=== PATIENT | female | born 1965 | race Caucasian/White ===

== ENCOUNTER 2017-03-15 13:43 | Emergency (ER) | payer SELFPAY ==
[~2017-03-15] VITALS: Ht 149.9 cm; Wt 59.0 kg
[~2017-03-15 13:43] MED LIST: DIPH25TA82 PO; ESCI20TA2 PO; ZLP5T PO
[2017-03-15] MEDS ORDERED: ZOLP10TA5 (14:06)
[2017-03-15] MEDS ORDERED: CITA40TA11 (14:06)
[2017-03-15 14:55] LABS: BILIRUBIN,URINE NEGATIVE (NEGATIVE); CLARITY,URINE CLEAR; COLOR,URINE YELLOW; GLUCOSE, URINE (UA) NEGATIVE (NEGATIVE); KETONES,URINE NEGATIVE (NEGATIVE); LEUKOCYTE ESTERASE ,URINE NEGATIVE (NEGATIVE); NITRITE,URINE NEGATIVE (NEGATIVE); PH,URINE 5 (5-9); PROTEIN,URINE NEGATIVE (NEGATIVE); UROBILINOGEN,URINE NORMAL (NORMAL)
--- NOTE | 2017-03-15 14:59 | ED GI ---
General Chief Complaint: Abdominal/GI Problems Stated Complaint: CONSTIPATED,BLEEDING RECTAL Nursing Triage Note: ARRIVED VIA AMB TO ROOM 10. STATES SHE STARTED HAVING CONSTIPATION ON SUNDAY. TOOK SENNA. STATES SHE HAD A BM ON SUNDAY THEN HAD DIARRHEA ON SUNDAY AND HAS NOT GONE SINCE. PT STATES SHE IS HAVING SOME RECTAL BLEEDING. PT STATES SHE AND HAD ANAL SEX ON SUN WHICH IS SOMETHING THEY DO NOT DO AND IS WORRIED THIS SOMEHOW CAUSED THE PROBLMES. Sepsis Screen: No Definite Risk Source of Information: Patient Exam Limitations: No Limitations History of Present Illness Date Seen by Provider: Mar 15, 2017 Time Seen by Provider: 14:00 Initial Comments This 51-year-old woman presents to the emergency room with primary complaint of rectal bleeding. She had a small amount of blood on the toilet paper today. She believes the blood is coming from the anal area. She reports having constipation last week. This started on the and . She took Senokot S on the and then began having bowel movements by . She has soft stools the next day. She additionally has eaten prunes and drank apple juice to help with constipation. She has had some associated back pain which was rather intense last night. She is additionally concerned because she had anal intercourse with her on the but denied having any bleeding or pain at that time. Her last menstrual period was 2 years ago. Allergies and Home Medications Allergies Uncoded Allergies: ENVIRONMENTAL (Allergy, Mild, 05/28/13) Home Medications Citalopram Hydrobromide 40 Mg Tablet, (Reported) Hydrocortisone/Pramoxine 10 Gm Foam, 1 APPLIC RC BID PRN for PAIN-MILD TO MODERATE, #1 Prescribed by: ROLDAN SILVA on 03/15/17 1548 Zolpidem Tartrate 5 Mg Tab, 5 MG PO HS, (Reported) Zolpidem Tartrate 10 Mg Tablet, (Reported) Review of Systems Constitutional: no symptoms reported EENTM: No Symptoms Reported Respiratory: No Symptoms Reported Cardiovascular: No Symptoms Reported Gastrointestinal: See HPI Genitourinary: No Symptoms Reported Musculoskeletal: no symptoms reported Skin: no symptoms reported Psychiatric/Neurological: No Symptoms Reported Endocrine: No Symptoms Reported Hematologic/Lymphatic: No Symptoms Reported Past Jzykpqt-Uamxra-Plvteb Hx Patient Social History Recent Foreign Travel: No Contact w/Someone Who Travel: No Recent Infectious Disease Expo: No Immunizations Up To Date Date of Influenza Vaccine: Feb 19, 2013 Surgeries History of Surgeries: Yes Surgeries: Section (3) Respiratory History of Respiratory Disorde: No Cardiovascular History of Cardiac Disorders: Yes Cardiac Disorders: High Cholesterol Neurological History of Neurological Disord: No 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 Genitourinary History of Genitourinary Disor: No Gastrointestinal History of Gastrointestinal Di: No Musculoskeletal History of Musculoskeletal Dis: No Endocrine History of Endocrine Disorders: No HEENT History of HEENT Disorders: No Cancer History of Cancer: No Psychosocial History of Psychiatric Problem: No Integumentary History of Skin or Integumenta: No Physical Exam Vital Signs VS - Last 72 Hours, by Label 03/15/17 13:58 Temp 98.0 Pulse 115 Resp 18 B/P (MAP) 168/108 (128) Pulse Ox 96 Capillary Refill : Less Than 3 Seconds General Appearance: WD/WN, no apparent distress HEENT: PERRL/EOMI, normal ENT inspection, pharynx normal Neck: normal inspection Respiratory: lungs clear, normal breath sounds, no respiratory distress, no accessory muscle use Cardiovascular: regular rate, rhythm, no edema, no murmur Gastrointestinal: normal bowel sounds, non tender, soft Genital/Rectal: other (there is a small uncomplicated anal fissure just exterior to the anterior portion of the anal verge. There is no active bleeding and no inflammation. Digital rectal exam revealed no blood, masses, or unusual pain.) Extremities: normal inspection, no pedal edema Neurologic/Psychiatric: gas combustion engineer II-XII nml as tested, no motor/sensory deficits, alert, normal mood/affect, oriented x 3 Skin: normal color, warm/dry Progress/Results/Core Measures Results/Orders Lab Results Laboratory Tests Test 03/15/17 14:08 Range/Units Urine Color YELLOW Urine Clarity CLEAR Urine pH 5 5-9 Urine Specific Severance 1.025 H 1.016-1.022 Urine Protein NEGATIVE NEGATIVE Urine Glucose (UA) NEGATIVE NEGATIVE Urine Ketones NEGATIVE NEGATIVE Urine Nitrite NEGATIVE NEGATIVE Urine Bilirubin NEGATIVE NEGATIVE Urine Urobilinogen NORMAL NORMAL MG/DL Urine Leukocyte Esterase NEGATIVE NEGATIVE Urine RBC (Auto) NEGATIVE NEGATIVE Urine RBC NONE /HPF Urine WBC NONE /HPF Urine Squamous Epithelial Cells 5-10 /HPF Urine Crystals NONE /LPF Urine Bacteria NEGATIVE /HPF Urine Casts NONE /LPF Urine Mucus NEGATIVE /LPF Urine Culture Indicated NO My Orders Orders - BRUEGGEMANN,ROLDAN T MD Ua Culture If Indicated (03/15/17 14:32) Abdomen/Kub 1view (03/15/17 14:32) Vital Signs/I&O Vital Sign - Last 12Hours 03/15/17 13:58 Temp 98.0 Pulse 115 Resp 18 B/P (MAP) 168/108 (128) Pulse Ox 96 Blood Pressure Mean: 128 Diagnostic Imaging Diagonstic Imaging: Xray Plain Films/CT/US/NM/MRI: abdomen, pelvis Comments KUB viewed by me and report reviewed. See report below: NAME: AYAD [facility]DRAN [facility] REC#: [id number] PT STATUS: REG ER : 1965 PHYSICIAN: ROLDAN APODACA MD ADMIT DATE: 03/15/17/ER Draft Date of Exam:03/15/17 ABDOMEN/KUB 1VIEW INDICATION: Constipation. Abdominal pain. COMPARISON: None. FINDINGS: Single supine radiographic view of the abdomen was obtained and demonstrates nondistended loops of small bowel. There is no large collection of free peritoneal air. Moderate air and stool are seen scattered throughout the colon. Well corticated extraosseous rounded calcifications are seen projecting over the pelvis, bilaterally. No unexpected radiopaque foreign bodies are identified. Bony structures show no gross acute abnormalities. IMPRESSION: 1. Nonobstructed small bowel gas pattern. 2. Moderate colonic air and stool. Please correlate for constipation. 3. Probable pelvic phleboliths, although distal ureteral calculi cannot be entirely excluded. Dictated on workstation # [id number] Dict: 03/15/17 1532 Trans: 03/15/17 1534 [facility] [id number] Interpreted by: HÉCTOR FREY MD Departure Impression Impression: Primary Impression: Anal fissure Additional Impression: Constipation Qualified Codes: K59.00 - Constipation, unspecified Disposition: 01 HOME, SELF-CARE Condition: Stable Departure-Patient Inst. Decision time for Depature: 15:45 Referrals: TEJAL EDWARDS DO (PCP) Primary Care Physician JAMES SANTO (Family) Primary Care Physician Patient Instructions: Anal Fissure, Constipation, Adult (DC) Add. Discharge Instructions: Drink plenty of clear liquids and eat a diet high in fiber including plenty of fruits, vegetables, whole grains, etc. Avoid excessive meats, cheeses, processed foods, and fast foods. You may use MiraLAX (polyethylene glycol) once or twice daily for treatment of constipation. Fill the measuring cap o the appropriate line and mix with 8-12 ounces of water or juice. You may take Tylenol (acetaminophen) and/or ibuprofen for your back pain. Minimize irritation and trauma to the anal area to allow the fissure (crack) to heal. If you develop pain or irritation with that, you may fill the proctoscopy foam as prescribed. Return to care if his symptoms are worsening or you're not improving as anticipated. All discharge instructions reviewed with patient and/or family. Voiced understanding. Scripts Tramadol HCl (Ultram) 50 Mg Tablet 50 MG PO QID, #8 TAB Prov: ROLDAN APODACA MD 03/15/17 Hydrocortisone/Pramoxine (Proctofoam-Hc 1%-1% Foam) 10 Gm Foam 1 APPLIC RC BID Y for PAIN-MILD TO MODERATE, #1 GM Prov: ROLDAN APODACA MD 03/15/17 ROLDAN APODACA MD Mar 15, 2017 14:59
[2017-03-15 15:02] LABS: BACTERIA,URINE NEGATIVE /HPF
--- NOTE | 2017-03-15 15:34 | Diagnostic Imaging Report ---
INDICATION: Constipation. Abdominal pain. COMPARISON: None. FINDINGS: Single supine radiographic view of the abdomen was obtained and demonstrates nondistended loops of small bowel. There is no large collection of free peritoneal air. Moderate air and stool are seen scattered throughout the colon. Well corticated extraosseous rounded calcifications are seen projecting over the pelvis, bilaterally. No unexpected radiopaque foreign bodies are identified. Bony structures show no gross acute abnormalities. IMPRESSION: 1. Nonobstructed small bowel gas pattern. 2. Moderate colonic air and stool. Please correlate for constipation. 3. Probable pelvic phleboliths, although distal ureteral calculi cannot be entirely excluded. Dictated by: Dictated on workstation # [id number]
[2017-03-15] MEDS ORDERED: HCPR10FM RC (15:48)
[2017-03-15] MEDS ORDERED: TRAM-42 PO (16:04)
[2017-03-15 16:09] VITALS: BP 151/81
--- OUTSIDE RECORDS SUMMARY | 2017-03-18 06:00 | XMS REPORT ---
Author Author JAMES SANTO Organization [employer] Address Unknown Phone Unavailable Care Team Providers Care Dry Wall Sprayer Name Role Phone JAMES SANTO CP Unavailable Allergies No Known Allergies Problems Problem Type Condition Code Onset Dates Condition Status Problem Routine adult health maintenance V70.0 Active Problem Allergic rhinitis 477.9 Active Problem Insomnia, unspecified G47.00 Active Problem Unspecified hypertrophic and atrophic condition of skin 701.9 Active Assessment Insomnia, unspecified G47.00 Active Problem Insomnia 780.52 Active Problem Anxiety 300.00 Active Medications Medication Code System Code Instructions Start Date End Date Status Dosage Ambien [facility] [id number] 10 MG Orally Once a day. Appt required prior to next refill Dec 03, 2014 1 tablet at bedtime as needed Results No Known Results Summary Purpose [employer]ClinicalWorks Submission
--- OUTSIDE RECORDS SUMMARY | 2017-03-18 06:00 | XMS REPORT ---
Author Author WEI RIOS [facility] e[employer] Address Unknown Phone Unavailable Care Team Providers Care Sandwich Hand Name Role Phone WEI RIOS CP Unavailable Allergies No Known Allergies Problems [...] Instructions Start Date End Date Status [facility]os[facility] [address]-78 10 MG Orally Once a day Dec 07, 2014 1 tablet at bedtime as needed Results No Known Results Summary Purpose [employer]ClinicalWorks Submission
--- OUTSIDE RECORDS SUMMARY | 2017-03-18 06:00 | XMS REPORT ---
Author Author WEI RIOS [facility] [employer] Address Unknown Phone Unavailable Care Team Providers Care Podopediatrician Name Role Phone WEI RIOS CP Unavailable Allergies No Known Allergies Problems Problem Type Condition Code Onset Dates Condition Status Problem Insomnia, unspecified G47.00 Active Problem Routine adult health maintenance V70.0 Active Problem Anxiety F41.9 Active Problem Anxiety 300.00 Active Problem Unspecified hypertrophic and atrophic condition of skin 701.9 Active Problem Allergic rhinitis 477.9 Active Problem Insomnia 780.52 Active Medications No Known Medications Results No Known Results Summary Purpose [employer]ClinicalWorks Submission
--- OUTSIDE RECORDS SUMMARY | 2017-03-18 06:00 | XMS REPORT ---
Author Author WEI RIOS [facility] e[employer] Address Unknown Phone Unavailable Care Team Providers Care Field Administrator Name Role Phone WEI RIOS CP Unavailable Allergies No Known Allergies Problems Problem Type Condition ICD-9 Code Onset Dates Condition Status Problem Allergic rhinitis 477.9 Active Problem Insomnia 780.52 Active Problem Routine adult health maintenance V70.0 Active Problem Anxiety 300.00 Active Problem Unspecified hypertrophic and atrophic condition of skin 701.9 Active Medications No Known Medications Results No Known Results Summary Purpose [employer]ClinicalWorks Submission
--- OUTSIDE RECORDS SUMMARY | 2017-03-18 06:00 | XMS REPORT ---
Author Author WEI RIOS [facility] eClinicalWorks Address Unknown Phone Unavailable Care Team Providers Care Wet Machine Cutter Name Role Phone WEI RIOS CP Unavailable Allergies, Adverse Reactions, Alerts Substance Reaction Event Type Pravastatin Sodium Vomitting Drug Allergy Problems Problem Type Condition ICD-9 Code Onset Dates Condition Status Problem Allergic rhinitis 477.9 Active Problem Insomnia 780.52 Active Problem Routine adult health maintenance V70.0 Active Problem Anxiety 300.00 Active Problem Unspecified hypertrophic and atrophic condition of skin 701.9 Active Medications Medication Code System Code Instructions Start Date End Date Status Dosage Red Yeast [facility] 2001 [id number] 600 MG Orally not defined Results No Known Results Summary Purpose eClinicalWorks Submission
--- OUTSIDE RECORDS SUMMARY | 2017-03-18 06:00 | XMS REPORT | Continuity of Care Document ---
Author Author [facility] Address Unknown Phone Unavailable Allergies Active Description Code Type Severity Reaction Onset Reported/Identified Relationship to Patient Clinical Status Yes ENVIRONMENTAL ENVIRONMENTAL Mild N/A 05/28/2013 Medications There is no data. Problems Date Dx Coded Attending Type Code Diagnosis Diagnosed By 05/28/2013 ROLDAN APODACA MD Ot 465.9 ACUTE URI NOS 05/28/2013 ROLDAN APODACA MD Ot 786.2 COUGH 05/05/2014 KRIS DOAN APRN 701.9 UNSPECIFIED HYPERTROPHIC AND ATROPHIC CONDITIONS OF SKIN 05/14/2015 ISAAK JOLLY APRN Ot Z12.31 05/26/2015 ISAAK JOLLY APRN Ot Z12.31 03/15/2017 ISAAK JOLLY APRN Ot Z12.31 ENCNTR SCREEN MAMMOGRAM FOR MALIGNANT NE Procedures There is no data. Results Test Result Range Complete urinalysis with reflex to culture - 03/15/17 14:08 Urine color determination YELLOW NRG Urine clarity determination CLEAR NRG Urine pH measurement by test strip 5 5-9 Specific gravity of urine by test strip 1.025 1.016- 1.022 Urine protein assay by test strip, semi-quantitative NEGATIVE NEGATIVE Urine glucose detection by automated test strip NEGATIVE NEGATIVE Erythrocytes detection in urine sediment by light microscopy NEGATIVE NEGATIVE Urine ketones detection by automated test strip NEGATIVE NEGATIVE Urine nitrite detection by test strip NEGATIVE NEGATIVE Urine total bilirubin detection by test strip NEGATIVE NEGATIVE Urine urobilinogen measurement by automated test strip (mass/volume) NORMAL NORMAL Urine leukocyte esterase detection by dipstick NEGATIVE NEGATIVE Automated urine sediment erythrocyte count by microscopy (number/high power field) NONE NRG Automated urine sediment leukocyte count by microscopy (number/high power field ) NONE NRG Bacteria detection in urine sediment by light microscopy NEGATIVE NRG Squamous epithelial cells detection in urine sediment by light microscopy 5-10 NRG Crystals detection in urine sediment by light microscopy NONE NRG Casts detection in urine sediment by light microscopy NONE NRG Mucus detection in urine sediment by light microscopy NEGATIVE NRG Complete urinalysis with reflex to culture NO NRG Encounters ACCT No. Visit Date/Time Discharge Status Pt. Type Provider Facility Loc./Unit Complaint [id number] 05/05/2014 16:58:00 05/05/2014 23:59:59 CLS Outpatient KRIS DOAN APRN [id number] 03/15/2017 13:45:00 03/15/2017 16:09:00 DIS Emergency ROLDAN APODACA MD [facility] ER CONSTIPATED,BLEEDING RECTAL [id number] 05/13/2015 13:23:00 05/13/2015 23:59:59 CLS Outpatient ISAAK JOLLY APRN [facility] RAD SCREENING [id number] 05/28/2013 00:27:00 05/28/2013 02:53:00 DIS Emergency ROLDAN APODACA MD [facility] ER CONGESTION,RUNNY NOSE, SORE THROAT
--- OUTSIDE RECORDS SUMMARY | 2017-03-18 06:00 | XMS REPORT ---
Author Author JAMES SANTO [facility] Address [address] [place] [address] Care Team Providers Care Meteorology Teacher Name Role Phone JAMES SANTO Unavailable PROBLEMS Type Condition ICD9-CM Code [id number] Code Onset Dates Condition Status SNOMED Code Assessment Anxiety F41.9 Dec, Active 70756099 Problem Insomnia, unspecified G47.00 Active 713736012 Problem Allergic rhinitis 477.9 Active 58567710 Problem Perimenopausal N95.1 Active 823213848806987 Problem History of hypercholesterolemia Z86.39 Active 062355764 Problem Menopause Z78.0 Active 886023417 Problem Anxiety F41.9 Active 15930140 Problem Mixed hyperlipidemia E78.2 Active 028955217 Problem Primary insomnia F51.01 Active 3718278 ALLERGIES Unknown Allergies SOCIAL HISTORY No smoking Hx information available PLAN OF CARE VITAL SIGNS MEDICATIONS Unknown Medications RESULTS Name Result Date Reference Range LIPID PANEL 2016-01-19 Cholesterol, Total 201 100-199 Triglycerides 128 0-149 HDL Cholesterol 45 >39 VLDL Cholesterol Karlos 26 5-40 LDL Cholesterol Calc 130 0-99 Comment: PROCEDURES Procedure Date Ordered Related Diagnosis Body Site LIPID PANEL Jan 19, 2016 VENNUSRAT, ROUTINE* Jan 19, 2016 IMMUNIZATIONS No Known Immunizations
--- OUTSIDE RECORDS SUMMARY | 2017-03-18 06:00 | XMS REPORT ---
Author Author JAMES SANTO [facility] eClinicalWorks Address Unknown Phone Unavailable Care Team Providers Care Sensor Technician Name Role Phone AJMES SANTO CP Unavailable Allergies No Known Allergies Problems Problem Type Condition Code Onset Dates Condition Status Problem Anxiety F41.9 Active Problem Primary insomnia F51.01 Active Problem Menopause Z78.0 Active Problem Pain in female genitalia on intercourse N94.1 Active Problem Vaginal dryness N89.8 Active Problem Perimenopausal N95.1 Active Problem Vaginal atrophy N95.2 Active Problem Mixed hyperlipidemia E78.2 Active Problem History of abnormal cervical Pap smear Z87.898 Active Problem History of hypercholesterolemia Z86.39 Active Problem Insomnia 780.52 Active Problem Allergic rhinitis 477.9 Active Problem Unspecified hypertrophic and atrophic condition of skin 701.9 Active Problem Routine adult health maintenance V70.0 Active Problem Anxiety 300.00 Active Problem Insomnia, unspecified G47.00 Active Medications Medication Code System Code Instructions Start Date End Date Status [facility] [address]-90 10 MG Orally Once a day Dec 07, 2014 1 tablet at bedtime as needed Results No Known Results Summary Purpose eClinicalWorks Submission
--- OUTSIDE RECORDS SUMMARY | 2017-03-18 06:00 | XMS REPORT ---
Author Author WEI RIOS [facility] eClinicalWorks Address Unknown Phone Unavailable Care Team Providers Care Residential Sales Executive Name Role Phone WEI RIOS CP Unavailable [...]
--- OUTSIDE RECORDS SUMMARY | 2017-03-18 06:00 | XMS REPORT ---
Author Author JAMES SANTO [facility] Address [address] [place] [address] Care Team Providers Care Shop Repairer Name Role Phone JAMES SANTO Unavailable PROBLEMS Type Condition ICD9-CM Code MQA05-AZ Code Onset Dates Condition Status SNOMED Code Problem Insomnia, unspecified G47.00 Active 147989294 Problem Allergic rhinitis 477.9 Active 24807883 Problem Perimenopausal N95.1 Active 990747075211924 Problem History of hypercholesterolemia Z86.39 Active 583411774 Problem Menopause Z78.0 Active 997063776 Problem Anxiety F41.9 Active 96512926 Problem Mixed hyperlipidemia E78.2 Active 433095151 Problem Primary insomnia F51.01 Active 0555771 ALLERGIES Substance Reaction Event Type Date Status Pravastatin Sodium Vomiting Drug Allergy Jan, Active SOCIAL HISTORY No smoking Hx information available PLAN OF CARE Activity Details Follow Up 6 Months Reason: VITAL SIGNS Height 59 in 2016-02-02 Weight 132 lbs 2016-02-02 Temperature 97.8 degrees Fahrenheit 2016-02-02 Heart Rate 80 bpm 2016-02-02 Respiratory Rate 20 2016-02-02 BMI 26.66 kg/m2 2016-02-02 Blood pressure systolic 124 mmHg 2016-02-02 Blood pressure diastolic 84 mmHg 2016-02-02 MEDICATIONS Medication Instructions Dosage Frequency Start Date End Date Duration Status Ambien 10 mg Orally Once a day 1 tablet at bedtime 24h Active Crestor 10 mg Orally Once a day 1 tablet 24h Active Vistaril 25 MG Orally every 8 hrs 1 capsule as needed 8h 30 day(s) Active Fish Oil 500 MG Orally Once a day 2 24h Active Citalopram Hydrobromide 40 mg Orally Once a day 1 tablet 24h Active RESULTS No Results PROCEDURES Procedure Date Ordered Related Diagnosis Body Site Office Visit, Est Pt., Level 4 Feb 02, 2016 IMMUNIZATIONS No Known Immunizations
--- OUTSIDE RECORDS SUMMARY | 2017-03-18 06:00 | XMS REPORT ---
Author Author WEI RIOS [facility] eClinicalWorks Address Unknown Phone Unavailable Care Team Providers Care Language Translator Name Role Phone WEI RIOS CP Unavailable Allergies No Known Allergies Problems Problem Type Condition ICD-9 Code Onset Dates Condition Status Problem Allergic rhinitis 477.9 Active Problem Insomnia 780.52 Active Problem Routine adult health maintenance V70.0 Active Problem Anxiety 300.00 Active Problem Unspecified hypertrophic and atrophic condition of skin 701.9 Active Medications Medication Code System Code Instructions Start Date End Date [facility] D[facility] [address]-22 10 MG Orally TAKE ONE TABLET BY MOUTH EVERY NIGHT AT BEDTIME NEEDED Results No Known Results Summary Purpose eClinicalWorks Submission
--- OUTSIDE RECORDS SUMMARY | 2017-03-18 06:00 | XMS REPORT ---
Author Author WEI RIOS [facility] eClinicalWorks Address Unknown Phone Unavailable Care Team Providers Care Cad Designer Drafter Name Role Phone WEI RIOS CP Unavailable Allergies, Adverse Reactions, Alerts Substance Reaction Event Type Pravastatin Sodium Vomiting Drug Allergy Problems Problem Type Condition Code Onset Dates Condition Status Assessment Anxiety F41.9 Active Assessment Insomnia, unspecified G47.00 Active Assessment Encounter for immunization Z23 Active Assessment Hyperlipidemia E78.5 Active Problem Insomnia, unspecified G47.00 Active Problem Routine adult health maintenance V70.0 Active Problem Anxiety F41.9 Active Problem Anxiety 300.00 Active Problem Unspecified hypertrophic and atrophic condition of skin 701.9 Active Problem Allergic rhinitis 477.9 Active Problem Insomnia 780.52 Active Medications Medication Code System Code Instructions Start Date End Date Status Dosage Citalopram Hydrobromide [facility] [address]-26 40 MG Orally Once a day Jan 21, 2015 1 tablet Crestor [facility] [address]-51 10 MG Orally Once a day Jan 21, 2015 1 tablet Ambien [facility] [address]-94 10 MG Orally Once a day Dec 07, 2014 1 tablet at bedtime as needed Claritin [facility] [address]-31 10 MG Orally Once a day Sep 24, 2014 Mar 23, 2015 1 tablet Procedures Procedure Coding System Code Date SINGLE IMMUNIZATION ADMIN CPT-4 50401 Jan 21, 2015 Office Visit, Est Pt., Level 3 CPT-4 65619 Jan 21, 2015 FLUARIX QUAD (3 & UP)-GSK-2014 CPT-4 08052 Jan 21, 2015 Vital Signs Date/Time: Jan 21, 2015 Temperature 97.7 F Weight 133.0 lbs Height 59 in BMI 26.86 Index Blood Pressure Diastolic 80 mmHg Blood Pressure Systolic 138 mmHg Cardiac Monitoring Heart Rate 74 bpm Results No Known Results Immunizations Vaccine Administration Date FLUARIX QUAD (3 & UP)-GSK-2014Jan 21, 2015 Summary Purpose eClinicalWorks Submission
== END 2017-03-15 16:09 | disposition home or self-care (01) ==
LOC: EDUNIT# 13:43 → ER 13:45
DX: K60.2 Anal fissure, unspecified (principal); K59.00 Constipation, unspecified; E78.00 Pure hypercholesterolemia, unspecified; Z87.59 Personal history of other complications of pregnancy, childbirth and the puerperium
CPT/HCPCS: 74018; 81000; 99284

== ENCOUNTER → 2018-01-25 | Outpatient (CLI) | payer OTHER ==
[~2018-01-25] MED LIST changes: +CITA40TA11; +HCPR10FM RC; +TRAM-42 PO; +ZOLP10TA5
--- NOTE | 2018-01-28 21:24 | Diagnostic Imaging Report ---
Digital mammogram bilateral screening with 3 D tomosynthesis This study was compared to the prior exams of 05/13/2015. At this time, there are no current complaints. The current study was also evaluated with a Computer Aided Detection (CAD) system. FINDINGS: The fibroglandular tissue in both breasts is heterogeneously dense. This does limit the sensitivity of this exam. Overall, there does not appear to have been any significant change when compared to the prior study. No primary or secondary sign of malignancy is noted. IMPRESSION: There is no radiographic evidence for malignancy. ACR BI-RADS Category 1: Negative. Result letter will be mailed to the patient. Note: At least 10% of breast cancer is not imaged by mammography. Dictated by: Dictated on workstation # [id number]
== END ==
LOC: RAD 15:25
PROVIDERS: ATTEND Nurse Practitioner Family
DX: Z12.31 Encounter for screening mammogram for malignant neoplasm of breast (principal)
CPT/HCPCS: 77067

== ENCOUNTER → 2020-03-22 | Outpatient (CLI) | payer OTHER ==
--- NOTE | 2020-03-23 14:55 | Diagnostic Imaging Report ---
INDICATION: Routine screening. COMPARISON: 01/25/2018 and 05/13/2015. TECHNIQUE: 2D and 3D bilateral screening mammography was performed with CAD. FINDINGS: Scattered fibroglandular densities are identified bilaterally. The parenchymal pattern is stable. No dominant mass or malignant appearing microcalcifications are seen. There are benign calcifications present. A benign nodule in the upper-outer left breast is stable. The axillae are unremarkable. IMPRESSION: No mammographic features suspicious for malignancy are identified. ACR BI-RADS Category 2: Benign findings. Result letter will be mailed to the patient. Note: At least 10% of breast cancer is not imaged by mammography. Dictated by: Dictated on workstation # [id number]
== END ==
LOC: RAD 14:50
PROVIDERS: ATTEND Nurse Practitioner Family
DX: Z12.31 Encounter for screening mammogram for malignant neoplasm of breast (principal)
CPT/HCPCS: 77063; 77067